=== PATIENT | female | born 1980 | race Caucasian/White ===

== ENCOUNTER 2017-03-14 15:54 | Inpatient (IN) | payer OTHER ==
[~2017-03-14] VITALS: Ht 160 cm; Wt 70.5 kg
[2017-03-14 15:56] VITALS: BP 137/63; PULSE 90; RESP 20; TEMP 98.6; O2SAT 98
--- NOTE | 2017-03-14 16:08 | PD ---
Physical Exam Time Seen by Provider: 16:04 Narrative 36yo F c/o R hip pain [id number]. Was treated for cellulitis of R hip w/ Doxycycline on 03/07/2017 by [facility]. Today is last day of Doxycycline and symptoms are much worse. Denies recent fever and vomiting. Reports nausea after taking medication. VS reviewed. Patient seen in triage. Awaiting bed placement. Data Data Last Documented VS Vital Signs Date Time Temp Pulse Resp B/P Pulse Ox O2 Delivery O2 Flow Rate FiO2 03/14/17 15:56 98.6 90 20 137/63 98 MDM Supervised Visit with ORALIA: Sapphire Benítez March 14, 2017 16:08
[2017-03-14] MEDS ORDERED: DOXY100C PO (16:27)
[2017-03-14] MEDS ORDERED: LIDOCAINE 1%/EPINEPHrine 1:100,000 SOLN 20 ML VIAL INFIL ONE (17:30)
[2017-03-14] MEDS ORDERED: VANCOMYCIN INJ 950 MG in SODIUM CHLOR 0.9% 250 ML INJ 250 ML IV ONE (17:45)
[2017-03-14] MEDS ORDERED: DIPHTH/TETANUS/ACEL PERTUSSIS (BOOSTER) 0.5 ML VIAL/PFS IM ONE (17:45)
[2017-03-14] MEDS ORDERED: SODIUM CHLORIDE 0.9% FLUSH 10 ML FLUSH IVF PRN (17:45)
[2017-03-14 17:57] LABS: AUTOMATED NEUTROPHIL # 7.1 TH/MM3 (1.8-7.7); BASOPHIL # 0.1 TH/MM3 (0-0.2); BASOPHIL % 0.7 % (0.0-2.0); EOSINOPHIL # 0.2 TH/MM3 (0-0.4); EOSINOPHIL % 1.5 % (0.0-4.0); HEMO FLAGS DIFF FINAL; LYMPH % 25.2 % (9.0-44.0); LYMPHOCYTE # 2.6 TH/MM3 (1.0-4.8); MEAN CELL VOLUME 91.1 FL (80.0-100.0); MEAN CORPUSCULAR HEMOGLOBIN 31.5 PG (27.0-34.0); MEAN CORPUSCULAR HGB CONC 34.6 % (32.0-36.0); NEUT % 68.6 % (16.0-70.0); PLATELET COUNT 366 TH/MM3 (150-450); RED BLOOD COUNT 4.61 MIL/MM3 (4.00-5.30); WHITE BLOOD COUNT 10.4 TH/MM3 (4.0-11.0)
[2017-03-14] MEDS ORDERED: MORPHINE SULFATE 8 MG/ML INJ ONE ×2 (18:04→18:05)
[2017-03-14 18:23] LABS: BICARBONATE 25.2 MEQ/L (21.0-32.0); POTASSIUM 3.7 MEQ/L (3.5-5.1)
[2017-03-14] MEDS ORDERED: SODIUM CHLOR 0.9% 1000 ML INJ 1,000 ML IV ONE (18:30)
[2017-03-14] MEDS ORDERED: MORPHINE SULFATE 8 MG/ML INJ IV PUSH ONE (18:30)
--- NOTE | 2017-03-14 18:40 | PD ---
HPI Chief Complaint: Pain: Acute or Chronic Time Seen by Provider: 16:17 Travel History International Travel<30 days: Yes Contact w/Intl Traveler<30days: Yes Name of Country Traveled to: [place] Traveled to known affect area: Yes History of Present Illness HPI Patient is a 36-year-old female who presents to emergency room with complaints of right-sided gluteal abscess. patient reports that she has had this abscess for the past 3 weeks, reports that 3 weeks ago, she was having fever/chills. Reports that she was started on doxycline 2 weeks ago and is completing her antibiotics today. Patient reports that symptoms are worse. Reports severe pain to her right hip, reports that she is unable to ambulate because of this pain. Reports that she is having fever/chills, reports that her right hip feels "tight." Tetanus is not up to date. PFSH Past Medical History Tetanus Vaccination: Unknown ?: Not LMP: 02/13/17 Social History Alcohol Use: No Tobacco Use: No Substance Use: No Allergies-Medications (Allergen,Severity, Reaction): Coded Allergies: No Known Allergies (Unverified , 03/14/17) Reported Meds & Prescriptions Reported Meds & Active Scripts Active Reported Doxycycline Hyclate 100 Mg Cap 100 Mg PO BID Review of Systems General / Constitutional: Positive: Fever, Chills Eyes: No: Visual changes HENT: No: Headaches Cardiovascular: No: Chest Pain or Discomfort Respiratory: No: Shortness of Breath Gastrointestinal: No: Abdominal Pain Genitourinary: No: Dysuria Musculoskeletal: No: Pain Skin: Positive Rash Neurologic: No: Weakness Psychiatric: No: Depression Endocrine: No: Polydipsia Hematologic/Lymphatic: No: Easy Bruising Physical Exam Narrative GENERAL: moderate distress SKIN: Focused skin assessment warm/dry. Patient with 8x8cm abscess to right upper buttocks with surrounding cellulitis and area of fluctuance HEAD: Atraumatic. Normocephalic. EYES: Pupils equal and round. No scleral icterus. No injection or drainage. ENT: No nasal bleeding or discharge. Mucous membranes pink and moist. NECK: Trachea midline. No JVD. CARDIOVASCULAR: Regular rate and rhythm. No murmur appreciated. RESPIRATORY: No accessory muscle use. Clear to auscultation. Breath sounds equal bilaterally. GASTROINTESTINAL: Abdomen soft, non-tender, nondistended. Hepatic and splenic margins not palpable. MUSCULOSKELETAL: No obvious deformities. No clubbing. No cyanosis. No edema. NEUROLOGICAL: Awake and alert. No obvious cranial nerve deficits. Motor grossly within normal limits. Normal speech. PSYCHIATRIC: Appropriate mood and affect; insight and judgment normal. Data Data Last Documented VS Vital Signs Date Time Temp Pulse Resp B/P Pulse Ox O2 Delivery O2 Flow Rate FiO2 03/14/17 15:56 98.6 90 20 137/63 98 Orders Lidocai-Epi 1%-1:100,000 Inj (Xylocaine- (03/14/17 17:30) Qwqn-Dsi-Gsffyt (Booster) Inj (Boostrix (03/14/17 17:45) Basic Metabolic Panel (Bmp) (03/14/17 17:31) Complete Blood Count With Diff (03/14/17 17:31) Iv Access Insert/Monitor (03/14/17 17:31) Sodium Chloride 0.9% Flush (Ns Flush) (03/14/17 17:45) Vancomycin Inj (Vancomycin Inj) (03/14/17 17:45) Morphine Inj (Morphine Inj) (03/14/17 18:04) Morphine Inj (Morphine Inj) (03/14/17 18:05) Wound Culture And Gram Stain (03/14/17 18:20) Morphine Inj (Morphine Inj) (03/14/17 18:30) Sodium Chlor 0.9% 1000 Ml Inj (Ns 1000 M (03/14/17 18:30) Diphenhydramine Inj (Benadryl Inj) (03/14/17 19:00) Labs Laboratory Tests Test 03/14/17 17:00 White Blood Count 10.4 TH/MM3 Red Blood Count 4.61 MIL/MM3 Hemoglobin 14.6 GM/DL Hematocrit 42.0 % Mean Corpuscular Volume 91.1 FL Mean Corpuscular Hemoglobin 31.5 PG Mean Corpuscular Hemoglobin 34.6 % Concent Red Cell Distribution Width 12.0 % Platelet Count 366 TH/MM3 Mean Platelet Volume 7.6 FL Neutrophils (%) (Auto) 68.6 % Lymphocytes (%) (Auto) 25.2 % Monocytes (%) (Auto) 4.0 % Eosinophils (%) (Auto) 1.5 % Basophils (%) (Auto) 0.7 % Neutrophils # (Auto) 7.1 TH/MM3 Lymphocytes # (Auto) 2.6 TH/MM3 Monocytes # (Auto) 0.4 TH/MM3 Eosinophils # (Auto) 0.2 TH/MM3 Basophils # (Auto) 0.1 TH/MM3 CBC Comment DIFF FINAL Differential Comment Sodium Level 140 MEQ/L Potassium Level 3.7 MEQ/L Chloride Level 105 MEQ/L Carbon Dioxide Level 25.2 MEQ/L Anion Gap 10 MEQ/L Blood Urea Nitrogen 18 MG/DL Creatinine 0.60 MG/DL Estimat Glomerular Filtration 114 ML/MIN Rate Random Glucose 90 MG/DL Calcium Level 9.7 MG/DL MDM Medical Decision Making Medical Screen Exam Complete: Yes Emergency Medical Condition: Yes Interpretation(s) Vital Signs Date Time Temp Pulse Resp B/P Pulse Ox O2 Delivery O2 Flow Rate FiO2 03/14/17 15:56 98.6 90 20 137/63 98 Laboratory Tests Test 03/14/17 17:00 White Blood Count 10.4 TH/MM3 (4.0-11.0) Red Blood Count 4.61 MIL/MM3 (4.00-5.30) Hemoglobin 14.6 GM/DL (11.6-15.3) Hematocrit 42.0 % (35.0-46.0) Mean Corpuscular Volume 91.1 FL (80.0-100.0) Mean Corpuscular Hemoglobin 31.5 PG (27.0-34.0) Mean Corpuscular Hemoglobin 34.6 % Concent (32.0-36.0) Red Cell Distribution Width 12.0 % (11.6-17.2) Platelet Count 366 TH/MM3 (150-450) Mean Platelet Volume 7.6 FL (7.0-11.0) Neutrophils (%) (Auto) 68.6 % (16.0-70.0) Lymphocytes (%) (Auto) 25.2 % (9.0-44.0) Monocytes (%) (Auto) 4.0 % (0.0-8.0) Eosinophils (%) (Auto) 1.5 % (0.0-4.0) Basophils (%) (Auto) 0.7 % (0.0-2.0) Neutrophils # (Auto) 7.1 TH/MM3 (1.8-7.7) Lymphocytes # (Auto) 2.6 TH/MM3 (1.0-4.8) Monocytes # (Auto) 0.4 TH/MM3 (0-0.9) Eosinophils # (Auto) 0.2 TH/MM3 (0-0.4) Basophils # (Auto) 0.1 TH/MM3 (0-0.2) CBC Comment DIFF FINAL Differential Comment Differential Diagnosis Abscess with cellulitis Narrative Course Patient is a 36-year-old female who presents to emergency room with complaints of abscess with cellulitis to her right upper buttocks. Patient reports that her symptoms began 3 weeks ago, she is currently complaining of a course of antibiotics (doxycline). Patient reports that she has severe pain to her right hip, reports pain is so severe, she is unable to ambulate. On evaluation, patient does have a significant abscess to her right upper buttocks. Patient's tetanus is updated. Patient was given a dose of IV vancomycin. Area was I&D, there was a significant amount of purulent, chunky, thick white cottage cheese drainage from this abscess. Area was explored for loculations, after areas explored, there was again a significant amount of purulent, thick, cottage cheese drainage from abscess. After abscess was drained, it was packed with iodoform packing. Plan to admit patient to hospital overnight. Wound cultures were obtained CBC & BMP Diagram 03/14/17 17:[address] tellez who accepts pt to service Procedures Procedure Narrative SKIN: There is an indurated area in the right upper buttocks which measures about 8x8 cm in diameter. I numbed the areas with lidocaine with epi. Abscess was fluctuant but there is no pointing or drainage. There is a zone of inflammation around it but no lymphangitis. Using a #11, a significant about of purulent thick white cottage cheese pus was removed from abscess. I did put a iodoform packing and area was dressed. Patient tolerated procedure well Diagnosis Primary Impression: Abscess, gluteal, right Admitting Information Admitting Physician Requests: Breanna aCstillo DO March 14, 2017 18:40
[2017-03-14] MEDS ORDERED: diphenhydrAMINE HCL 50 MG/ML VIAL IV PUSH ONE (19:00)
[2017-03-14] MEDS ORDERED: ACETAMINOPHEN 325 MG TAB PO PRN (19:30)
[2017-03-14] MEDS ORDERED: Vancomycin Consult Pharmacy 1 EA OTHER SCH (19:30)
[2017-03-14] MEDS ORDERED: ONDANSETRON HCL 4 MG/2 ML VIAL IVP PRN (19:30)
[2017-03-14] MEDS ORDERED: NALOXONE HCL 0.4 MG/ML AMP IV PRN (19:30)
[2017-03-14] MEDS ORDERED: SODIUM CHLORIDE 0.9% FLUSH 10 ML FLUSH IV FLUSH PRN (19:30)
--- NOTE | 2017-03-14 20:23 | HHI.HP ---
HPI Service [facility] Primary Care Physician No Primary Care Physician Admission Diagnosis abscess with cellulitis - failed outpatient treatment Diagnoses: Chief Complaint: gluteal abscess Travel History International Travel<30 Days: Yes Contact w/Intl Traveler <30 Da: Yes Name of Country Traveled to: [facility] [place] Traveled to Known Affected Are: Yes History of Present Illness This is a 36-year-old female who reports no prior medical history presents to emergency room with complaints of right-sided gluteal abscess. Patient is here on vacation from the [place], has also traveled to the [facility] recently for 1 month. [place] been in the [place] 1 [place]. Patient first noticed a red and tender area after traveling. Patient reports at first there was a round pink area. Denies trauma to the area. Is not sure if there was a mosquito bite or not reports there was, "a lot of mosquito bites," while she was in the [facility]. Patient reports that she has had this abscess for the past 3 weeks, reports that 3 weeks ago, she was having fever/chills and started in bed. Patient was seen by urgent care center 2 weeks ago and was started on doxycycline, no I&D at that time. Patient is completing her antibiotics today reports that symptoms are worse. Reports severe pain to her right hip, reports that she is unable to ambulate because of this pain. Reports that she is having fever/chills, reports that her right hip feels "tight." 2 weeks ago patient did have a productive cough which has resolved after Doxycycline. Patient denies foreign material in body, history of heart murmur/rheumatic fever or DM. Patient denies shortness of breath, chest pain, blood in stool, nausea/vomiting/ diarrhea, dysuria, changes in appetite, or changes in weight. Review of Systems Except as stated in HPI: all other systems reviewed are Neg Past Family Social History Past Medical History denies prior medical history Past Surgical History none Reported Medications Doxycycline 100mg PO BID Allergies: Coded Allergies: No Known Allergies (Unverified , 03/14/17) Active Ordered Medications Current Medications Medications (Trade) Dose Ordered Sig/Liset Route Start Time Stop Time Status Last Admin (NS Flush) 2 ml UNSCH PRN IV FLUSH 03/14/17 19:30 (NS Flush) 2 ml BID IV FLUSH 03/14/17 21:00 (Tylenol) 650 mg Q4H PRN PO 03/14/17 19:30 (Zofran Inj) 4 mg Q6H PRN IVP 03/14/17 19:30 Naloxone HCl 0.4 mg 0.4 mg UNSCH PRN IV 03/14/17 19:30 (Vancomycin Consult Pharmacy) 0 ml @ 0 mls/hr UNSCH OTHER 03/14/17 19:30 Family History Mother has lupus also report Leukemia runs in her family Social History Denies illicit drug use No ETOH use for the past month- prior to that is an occasional drinker 2-3 drink when she goes out about twice a month Tobacco quit smoking 1 month ago prior to that is a social smoking Physical Exam Vital Signs Vital Signs Date Time Temp Pulse Resp B/P Pulse Ox O2 Delivery O2 Flow Rate FiO2 03/14/17 20:09 16 03/14/17 15:56 98.6 90 20 137/63 98 Physical Exam GENERAL: This is a well-nourished, well-developed patient, in no apparent distress. SKIN: packing to Right gluteal area intact HEAD: Atraumatic. Normocephalic. No temporal or scalp tenderness. EYES: Extraocular motions intact. No scleral icterus. No injection or drainage. CARDIOVASCULAR: Regular rate and rhythm without murmurs, gallops, or rubs. RESPIRATORY: Clear to auscultation. Breath sounds equal bilaterally. No wheezes , rales, or rhonchi. GASTROINTESTINAL: Abdomen soft, non-tender, nondistended. No guarding. MUSCULOSKELETAL: Extremities without clubbing, cyanosis, or edema. No joint tenderness, effusion, or edema noted. No calf tenderness. Negative Homans sign bilaterally. NEUROLOGICAL: Awake and alert. No focal deficits. Motor and sensory grossly within normal limits. Five out of 5 muscle strength in all muscle groups. Normal speech. Laboratory Laboratory Tests Test 03/14/17 17:00 White Blood Count 10.4 Red Blood Count 4.61 Hemoglobin 14.6 Hematocrit 42.0 Mean Corpuscular Volume 91.1 Mean Corpuscular Hemoglobin 31.5 Mean Corpuscular Hemoglobin 34.6 Concent Red Cell Distribution Width 12.0 Platelet Count 366 Mean Platelet Volume 7.6 Neutrophils (%) (Auto) 68.6 Lymphocytes (%) (Auto) 25.2 Monocytes (%) (Auto) 4.0 Eosinophils (%) (Auto) 1.5 Basophils (%) (Auto) 0.7 Neutrophils # (Auto) 7.1 Lymphocytes # (Auto) 2.6 Monocytes # (Auto) 0.4 Eosinophils # (Auto) 0.2 Basophils # (Auto) 0.1 CBC Comment DIFF FINAL Differential Comment Sodium Level 140 Potassium Level 3.7 Chloride Level 105 Carbon Dioxide Level 25.2 Anion Gap 10 Blood Urea Nitrogen 18 Creatinine 0.60 Estimat Glomerular Filtration 114 Rate Random Glucose 90 Calcium Level 9.7 Date/Time Procedure Status Source Growth 03/14/17 20:00 Gram Stain Received Wound Buttock Pending 03/14/17 20:00 Wound Culture Received Wound Buttock Pending Result Diagram: 03/14/17 1700 03/14/17 1700 Assessment and Plan Problem List: (1) Abscess, gluteal, right ICD Code: L02.31 Status: Acute Assessment and Plan This is a 36-year-old female who reports no prior medical history presents to emergency room with complaints of right-sided gluteal abscess. Patient is here on vacation from the [place], has also traveled [place] 1 [place]. [place]. Patient first noticed a red and tender area after traveling. Patient reports at first there was a round pink area. Denies trauma to the area. Is not sure if there was a mosquito bite or not reports there was, "a lot of mosquito bites. Patient reports that she has had this abscess for the past 3 weeks, reports that 3 weeks ago, she was having fever/chills and started in bed. Patient was seen by urgent care center 2 weeks ago and was started on doxycycline, no I&D at that time. Patient is completing her antibiotics today reports that symptoms are worse. Right gluteal abscess with cellulitis- failed outpatient therapy S/P I&D in ER with iodoform packing Vancomycin started by ED- will continue with pharmacy to dose add Zosyn IV Wound culture obtained await results consult wound care [place] by mouth and Morphine IV as needed for pain CT with IV contrast ordered and pending DVT prophylaxis with SCDs Discussed with ER provider, nursing and patient Written by Ashley Miller, acting as scribe for Dr. Abel on 03/14/17 at 20: 47. Addendum: CT pelvis reviewed and reveals: Soft tissue abscesses associated with presumed infected right buttock implant. Appears that patient does in fact have foreign body, buttock implant, even though patient originally denied any foreign bodies/implants. Consult general surgery for evaluation This note was transcribed by scribe [Ashley Miller]. I, Dr. Kayleen Abel personally performed the history, physical exam, and medical decision making; and confirmed the accuracy of the information in the transcribed note. Authenticated by Dr. Kayleen Abel on 03/14/17 at 20:47. Physician Certification 2 Midnight Certification Type: Admission for Inpatient Services Order for Inpatient Services The services are ordered in accordance with Medicare regulations or non- Medicare payer requirements, as applicable. In the case of services not specified as inpatient-only, they are appropriately provided as inpatient services in accordance with the 2-midnight benchmark. Estimated LOS (days): 3 days is the estimated time the patient will need to remain in the hospital, assuming treatment plan goals are met and no additional complications. Post-Hospital Plan: Home Ashley Miller March 14, 2017 20:23 Kayleen Abel MD March 15, 2017 07:37
[2017-03-14 21:00] VITALS: BP 105/56; PULSE 65; RESP 16; O2SAT 98
[2017-03-14] MEDS ORDERED: IOHEXOL 350 MG/ML 10 ML VIAL (for RAD DIAG) IV ONE (21:19)
[2017-03-14 21:45] VITALS: BP 100/57; PULSE 82; RESP 18; TEMP 98.3; O2SAT 93
--- NOTE | 2017-03-14 21:54 | RADRPT ---
EXAM DATE/TIME: 03/14/2017 21:04 [facility] COMPARISON: No previous studies available for comparison. INDICATIONS : Evaluate pelvic abscess. IV CONTRAST: 90 cc Omnipaque 350 (iohexol) IV ORAL CONTRAST: No oral contrast ingested. RADIATION DOSE: 12.19 CTDIvol (mGy) MEDICAL HISTORY : None SURGICAL HISTORY : Self dissolving implants ENCOUNTER: Initial ACUITY: 3 weeks PAIN SCALE: 7/10 LOCATION: Bilateral pelvis TECHNIQUE: Volumetric scanning of the pelvis was performed. Using automated exposure control and adjustment of t he mA and/or kV according to patient size, radiation dose was kept as low as reasonably achievable to obtain optimal diagnostic quality images. FINDINGS: There are symmetric low density masses or collections in the deep subcutaneous tissues of the buttock s bilaterally which may be implants of some type. Lateral to and superficial to and somewhat above th e level of the right sided implant, a small irregular fluid density collection containing bubbles of air is present just deep to the skin surface. The collection measures about 4.5 cm in maximum oblong dimension. The overlying skin is thickened and there is induration in the surrounding subcutaneous ti ssues. Stranding and induration extends in contiguous fashion down to the edge of the ipsilateral imp lant where a second tiny adjacent fluid and air collection is present. Elsewhere on the exam, the pelvic bowel structures are unremarkable. There are some small cysts in th e ovaries. No free pelvic fluid. Urinary bladder is unremarkable. Inguinal regions are clear. The bon y elements are intact. CONCLUSION: Soft tissue abscesses associated with presumed infected right buttock implant. Michael Alston MD on March 14, 2017 at 21:44 Board Certified Radiologist. This report was verified electronically.
[2017-03-14] MEDS: SODIUM CHLORIDE 0.9% FLUSH 10 ML FLUSH IV FLUSH SCH (22:42)
[2017-03-15] VITALS (7 sets, daily range): BP systolic 84–110; BP diastolic 45–57; PULSE 68–80; RESP 16–18; TEMP 97.4–98.4; O2SAT 94–100
[2017-03-15] MEDS: PIPERACIL-TAZO 4.5 GM PREMIX 100 ML IV SCH ×5 (00:10→21:52)
[2017-03-15] MEDS: ACETAMINOPHEN/HYDROcodone 325 MG/5 MG TAB PO PRN (05:27)
[2017-03-15] MEDS: SODIUM CHLOR 0.9% 1000 ML INJ 1,000 ML IV SCH ×2 (05:27→15:15)
[2017-03-15 05:53] LABS: AUTOMATED NEUTROPHIL # 5.5 TH/MM3 (1.8-7.7); BASOPHIL % 0.3 % (0.0-2.0); EOSINOPHIL # 0.2 TH/MM3 (0-0.4); EOSINOPHIL % 2.9 % (0.0-4.0); HEMATOCRIT 38.2 % (35.0-46.0); HEMO FLAGS DIFF FINAL; LYMPH % 24.2 % (9.0-44.0); MEAN CELL VOLUME 91.2 FL (80.0-100.0); MEAN CORPUSCULAR HEMOGLOBIN 31.9 PG (27.0-34.0); NEUT % 67.6 % (16.0-70.0); PLATELET COUNT 329 TH/MM3 (150-450); RED BLOOD COUNT 4.18 MIL/MM3 (4.00-5.30); RED CELL DISTRIBUTION WIDTH 11.7 % (11.6-17.2); WHITE BLOOD COUNT 8.2 TH/MM3 (4.0-11.0)
[2017-03-15 06:13] LABS: BICARBONATE 28.5 MEQ/L (21.0-32.0)
[2017-03-15] MEDS: VANCOMYCIN 1,000 MG/NS 250 ML IV SCH ×4 (06:19→19:43)
[2017-03-15] MEDS: SODIUM CHLORIDE 0.9% FLUSH 10 ML FLUSH IV FLUSH SCH ×2 (08:56→19:58)
[2017-03-15] MEDS: LACTOBACILLUS ACIDOPHILUS TAB PO SCH ×3 (08:56→19:43)
--- NOTE | 2017-03-15 10:00 | HHI.PR ---
Subjective Remarks resting comfortably. no fever. pain is mild. no other complaints. Objective Vitals Vital Signs Date Time Temp Pulse Resp B/P Pulse Ox O2 Delivery O2 Flow Rate FiO2 03/15/17 08:00 97.7 68 17 92/56 98 03/15/17 04:00 98.4 74 18 110/57 98 03/15/17 00:00 98.0 80 18 95/45 94 03/14/17 21:45 98.3 82 18 100/57 93 03/14/17 21:00 65 16 105/56 98 03/14/17 20:09 16 03/14/17 15:56 98.6 90 20 137/63 98 I/O 03/14/17 03/14/17 03/14/17 03/15/17 03/15/17 03/15/17 07:00 15:00 23:00 07:00 15:00 23:00 Intake Total 480 ml 680 ml Balance 480 ml 680 ml Intake Oral 480 ml 480 ml IV Total 200 ml # Voids 0 2 # Bowel Movements 0 0 Result Diagram: 03/15/17 0533 03/15/17 0533 Imaging Last Impressions Pelvis CT 03/14/17 0000 Signed Impressions: Service Date/Time: Tuesday, March 14, 2017 21:04 - CONCLUSION: Soft tissue abscesses associated with presumed infected right buttock implant. Michael Alston MD Objective Remarks GENERAL: This is a well-nourished, well-developed patient, in no apparent distress. CARDIOVASCULAR: Regular rate and regular rhythm without murmurs, gallops, or rubs. RESPIRATORY: Clear to auscultation. Breath sounds equal bilaterally. No wheezes , rales, or rhonchi. GASTROINTESTINAL: Abdomen soft, non-tender, nondistended. Normal, active bowel sounds MUSCULOSKELETAL: Extremities without clubbing, cyanosis, or edema. NEURO: Alert & Oriented x4 to person, place, time, situation. Moves all ext x4 skin; s/p I/D of the right buttock abscess Procedures I/D of the right buttock abscess in ER Medications and IVs Current Medications Lidocaine/ Epinephrine (Xylocaine-Epi 1%-1:100,000 Inj) 30 ml ONCE ONCE INFIL Last administered on 03/14/17t 17:30; Start 03/14/17 at 17:30; Stop 03/14/17 at 17: 31; Status DC Diphtheria/ Tetanus/Acell Pertussis (Boostrix Inj) 0.5 ml ONCE ONCE IM Last administered on 03/14/17 17:45; Start 03/14/17 at 17:45; Stop 03/14/17 at 17:46; Status DC Sodium Chloride 2 ml 2 ml UNSCH PRN IVF FLUSH AFTER USING IV ACCESS; Start 03/14 at 17:45; Stop 03/14/17 at 19:55; Status DC Vancomycin HCl/ Sodium Chloride (Vancomycin Inj/ NS 250 ml Inj) 259.5 ml @ 250 mls/hr ONCE ONCE IV Last administered on 03/14/17 17:45; Start 03/14/17 at 17: 45; Stop 03/14/17 at 18:47; Status DC Morphine Sulfate (Morphine Inj) 8 mg STK-MED ONCE .ROUTE ; Start 03/14/17 at 18: 04; Stop 03/14/17 at 18:05; Status DC Morphine Sulfate (Morphine Inj) 8 mg STK-MED ONCE .ROUTE Last administered on 18:05; Start 03/14/17 at 18:05; Stop 03/14/17 at 18:06; Status DC Morphine Sulfate 8 mg 8 mg ONCE ONCE IV PUSH ; Start 03/14/17 at 18:30; Stop 03/14/17 at 18:31; Status DC Sodium Chloride (NS 1000 ml Inj) 1,000 ml @ 999 mls/hr BOLUS ONCE IV Last administered on 03/14/17 18:30; Start 03/14/17 at 18:30; Stop 03/14/17 at 19:30; Status DC Diphenhydramine HCl (Benadryl Inj) 50 mg ONCE ONCE IV PUSH Last administered on 03/14/17 19:00; Start 03/14/17 at 19:00; Stop 03/14/17 at 19:01; Status DC Sodium Chloride (NS Flush) 2 ml UNSCH PRN IV FLUSH FLUSH AFTER USING IV ACCESS ; Start 03/14/17 at 19:30 Sodium Chloride (NS Flush) 2 ml BID IV FLUSH Last administered on 03/14/17 22: 42; Start 03/14/17 at 21:00 Acetaminophen (Tylenol) 650 mg Q4H PRN PO TEMP > 100.4, pain 1-3; Start at 19:30 Ondansetron HCl (Zofran Inj) 4 mg Q6H PRN IVP NAUSEA OR VOMITING; Start at 19:30 Naloxone HCl 0.4 mg 0.4 mg UNSCH PRN IV SEE LABEL COMMENTS; Start 03/14/17 at 19 :30 Pharmacy Profile Note 0 ml @ 0 mls/hr UNSCH OTHER ; Start 03/14/17 at 19:30 Vancomycin HCl/ Sodium Chloride (Vancomycin Inj/ NS 250 ml Inj) 250 ml @ 250 mls/hr Q12H IV Last administered on 03/15/17 06:19; Start 03/15/17 at 06:00 Miscellaneous Information SPECIFIC LAB TO BE DRAWN:VANCO TROUGH DATE TO BE DR... ONCE ONCE .XX ; Start 03/16/17 at 05:45; Stop 03/16/17 at 05:46 Iohexol 90 ml 90 ml STK-MED ONCE IV Last administered on 03/14/17 21:19; Start 03/14/17 at 21:19; Stop 03/14/17 at 21:20; Status DC Piperacillin Sod/ Tazobactam Sod (Zosyn 4.5 Gm Premix) 100 ml @ 200 mls/hr Q6H IV Last administered on 03/15/17 05:18; Start 03/14/17 at 23:00 Lactobacillus Acidophilus 1 tab 1 tab TID PO Last administered on 03/15/17 08: 56; Start 03/15/17 at 09:00 Sodium Chloride (NS 1000 ml Inj) 1,000 ml @ 100 mls/hr Q10H IV Last administered on 03/15/17 05:27; Start 03/15/17 at 05:15 Acetaminophen/ Hydrocodone Bitart ([place] 5-325 Mg) 1 tab Q4H PRN PO PAIN 4-10 Last administered on 03/15/17 05:27; Start 03/15/17 at 05:15 A/P Assessment and Plan A/P Right gluteal abscess with cellulitis- failed outpatient therapy CT of the pelvis with Soft tissue abscesses associated with presumed infected right buttock implant S/P I&D in ER with iodoform packing will continue with vancomycin and Zosyn and follow the culture continue with pain control consulted surgery and wound care Mikey De Luna MD March 15, 2017 10:00
[2017-03-15] MEDS ORDERED: CLIN1CAP6 PO (12:58)
--- NOTE | 2017-03-15 20:40 | MB ---
cc: GURPREET CONNOR MD DATE OF CONSULTATION 03/15/2017 REASON FOR CONSULTATION Right gluteal abscess. HISTORY OF THE PRESENT ILLNESS The patient is a 36-year-old female presents with complaints of right-sided gluteal abscess. She is here on vacation from the and traveled to [facility] recently about a month ago and [place] in the [place] for approximately a month. The patient noted red, tender area while she was traveling. Several weeks ago she states that the redness continued to increase. Initially the pain was 12/16 and progressed to 05/15. She states the pain was located on her right hip, right side. It is sharp. It is worse with palpation and better with lying still. [facility] and started on doxycycline with minimal improvement. However, her symptoms continued to progress and the patient came to the emergency department for further evaluation including CT scan showing right-sided gluteal abscess, questionable abscess around a gluteal buttock implant. Therefore surgery was consulted. GENERAL: On my exam the patient is resting comfortably. She states that this infection has continued to get worse and actually somewhat opened a little bit and it has been draining. She denies any previous surgeries or implants. Further she denies any significant recent fevers. She is having some chills. She further discussed that she is from out-of-town and would like to go back to [facility] if she is to have any surgery done and is refusing any type of surgical procedure at this time. PAST MEDICAL HISTORY No past medical history. PAST SURGICAL HISTORY The patient denies any surgeries. MEDICATIONS Doxycycline. ALLERGIES The patient has no known drug allergies. SOCIAL HISTORY The patient occasional EtOH. Quit smoking about a month ago, occasional smoker, prior to this social smoking. FAMILY HISTORY Mother with lupus. Leukemia runs in her family. REVIEW OF SYSTEMS GENERAL: The patient complains of chills. HEENT: Denies eye pain, ear pain. NECK: Denies swelling or pain. LUNGS: Denies cough or wheeze. HEART: Denies palpitations or chest pain. ABDOMEN: Denies nausea, vomiting, abdominal pain. EXTREMITIES: Complained of right gluteal pain. Denies myalgias. GENITOURINARY: Denies dysuria, hematuria. ENDOCRINE: Denies polyuria, polydipsia. INTEGUMENT: Abscess as above. NEUROLOGIC: Denies numbness, tingling. PHYSICAL EXAMINATION GENERAL: The patient is in acute distress. VITAL SIGNS: Temperature 97.4, pulse 85, respiration 20, blood pressure 125/81, saturation 96%. HEENT: PERRLA, atraumatic, normocephalic. Pupils equal, round, reactive. NECK: Supple. Trachea midline. LUNGS: Clear to auscultation, bilateral expansion. No wheeze. HEART: S1-S2 regular rhythm. ABDOMEN: Soft, NT/ND. No rebound. EXTREMITIES: Positive tenderness to palpation in the right lower extremity. Decreased movement due to pain. right gluteal abscess with drainage and cellulitis NEUROLOGIC: GCS of 15, 5/5 motor all other extremities other than right lower. PSYCHIATRY: Anxiety, appropriate mood. LABORATORY AND DIAGNOSTIC DATA WBC 8.2, hemoglobin 13.3, hematocrit 38.2, platelets 329. Sodium 141, potassium 4.0, CO2 104, BUN 18, creatinine 0.66, glucose 117, calcium 9. IMAGING CT reviewed by myself soft tissue abscess questionable bilateral gluteal implants. Abscess measures about 4.5 cm. ASSESSMENT The patient is a 36-year-old female right gluteal abscess, questionable hardware versus implants. PLAN After full clinical, radiologic and laboratory workup, the patient with above-named issues including abscess. At this time discussed with the patient regarding need for IV antibiotics, pain control, monitor labs and possibly needing surgical intervention including incision and drainage of abscess to completely treat the infection. At this time the patient stating that she does not want any type of surgical procedures here and in fact she prefers to go back to her home country. She stated if she were to have any surgical procedure, she would have this done in [place] where she is from and is wanting to work on discharge planning. I discussed with the patient the risks, benefits, alternatives, discussed the potential risk of bacteremia, sepsis, septic shock and possible . The patient stated full understanding of this but again is inquiring about having surgical intervention at home. Further if indeed the patient does have gluteal implant which she is currently denying, consider a plastic surgery consultation as well. Again however, the patient refusing any kind of surgical procedure. Therefore, surgery will sign off. However, we will be available if the patient does change her mind or if further intervention is needed. Thank you for the consultation. MD DUSTY Sheth /4:56 PM /8:25 PM MTDGlenn
[2017-03-16 04:20] VITALS: BP 93/43; PULSE 70; RESP 16; TEMP 98.1; O2SAT 97
[2017-03-16] MEDS: PIPERACIL-TAZO 4.5 GM PREMIX 100 ML IV SCH ×4 (04:22→23:30)
[2017-03-16] MEDS: SODIUM CHLOR 0.9% 1000 ML INJ 1,000 ML IV SCH ×3 (04:30→20:19)
[2017-03-16] MEDS: VANCOMYCIN 1,000 MG/NS 250 ML IV SCH ×2 (05:36)
[2017-03-16] MEDS ORDERED: PHARMACY ORDERED LAB ONE (05:45)
[2017-03-16 08:00] VITALS: BP 99/56; PULSE 70; RESP 16; TEMP 98.1; O2SAT 98
[2017-03-16] MEDS: LACTOBACILLUS ACIDOPHILUS TAB PO SCH ×3 (08:03→18:07)
[2017-03-16] MEDS: SODIUM CHLORIDE 0.9% FLUSH 10 ML FLUSH IV FLUSH SCH ×2 (08:05→20:18)
--- NOTE | 2017-03-16 08:52 | HHI.PR ---
Subjective Remarks resting comfortably. denies pain. no fever. d/w the RN. Objective Vitals Vital Signs Date Time Temp Pulse Resp B/P Pulse Ox O2 Delivery O2 Flow Rate FiO2 03/16/17 08:10 Room Air 03/16/17 04:20 98.1 70 16 93/43 97 03/15/17 23:37 97.8 78 16 84/45 97 03/15/17 21:22 Room Air 03/15/17 20:08 97.4 80 16 97/56 97 03/15/17 16:00 97.6 79 18 107/55 100 03/15/17 12:00 98.0 69 16 96/54 98 I/O 03/15/17 03/15/17 03/15/17 03/16/17 03/16/17 03/16/17 07:00 15:00 23:00 07:00 15:00 23:00 Intake Total 680 ml 720 ml 1205 ml 822 ml Output Total 2 ml Balance 680 ml 720 ml 1203 ml 822 ml Intake Oral 480 ml 720 ml 480 ml 0 ml IV Total 200 ml 725 ml 822 ml Output Urine Total 2 ml # Voids 2 2 2 # Bowel Movements 0 0 1 0 Result Diagram: 03/15/17 0533 03/16/17 0531 Imaging Last Impressions Pelvis CT 03/14/17 0000 Signed Impressions: Service Date/Time: Tuesday, March 14, 2017 21:04 - CONCLUSION: Soft tissue abscesses associated with presumed infected right buttock implant. Michael Alston MD Objective Remarks GENERAL: This is a well-nourished, well-developed patient, in no apparent distress. CARDIOVASCULAR: Regular rate and regular rhythm without murmurs, gallops, or rubs. RESPIRATORY: Clear to auscultation. Breath sounds equal bilaterally. No wheezes , rales, or rhonchi. GASTROINTESTINAL: Abdomen soft, non-tender, nondistended. Normal, active bowel sounds MUSCULOSKELETAL: Extremities without clubbing, cyanosis, or edema. NEURO: Alert & Oriented x4 to person, place, time, situation. Moves all ext x4 skin; s/p I/D of the right buttock abscess Procedures I/D of the right buttock abscess in ER Medications and IVs Current Medications Lidocaine/ Epinephrine (Xylocaine-Epi 1%-1:100,000 Inj) 30 ml ONCE ONCE INFIL Last administered on 03/14/17 17:30; Start 03/14/17 at 17:30; Stop 03/14/17 at 17: 31; Status DC Diphtheria/ Tetanus/Acell Pertussis (Boostrix Inj) 0.5 ml ONCE ONCE IM Last administered on 03/14/17 17:45; Start 03/14/17 at 17:45; Stop 03/14/17 at 17:46; Status DC Sodium Chloride 2 ml 2 ml UNSCH PRN IVF FLUSH AFTER USING IV ACCESS; Start 03/14 at 17:45; Stop 03/14/17 at 19:55; Status DC Vancomycin HCl/ Sodium Chloride (Vancomycin Inj/ NS 250 ml Inj) 259.5 ml @ 250 mls/hr ONCE ONCE IV Last administered on 03/14/17 17:45; Start 03/14/17 at 17: 45; Stop 03/14/17 at 18:47; Status DC Morphine Sulfate (Morphine Inj) 8 mg STK-MED ONCE .ROUTE ; Start 03/14/17 at 18: 04; Stop 03/14/17 at 18:05; Status DC Morphine Sulfate (Morphine Inj) 8 mg STK-MED ONCE .ROUTE Last administered on 18:05; Start 03/14/17 at 18:05; Stop 03/14/17 at 18:06; Status DC Morphine Sulfate 8 mg 8 mg ONCE ONCE IV PUSH ; Start 03/14/17 at 18:30; Stop 03/14/17 at 18:31; Status DC Sodium Chloride (NS 1000 ml Inj) 1,000 ml @ 999 mls/hr BOLUS ONCE IV Last administered on 03/14/17 18:30; Start 03/14/17 at 18:30; Stop 03/14/17 at 19:30; Status DC Diphenhydramine HCl (Benadryl Inj) 50 mg ONCE ONCE IV PUSH Last administered on 03/14/17 19:00; Start 03/14/17 at 19:00; Stop 03/14/17 at 19:01; Status DC Sodium Chloride (NS Flush) 2 ml UNSCH PRN IV FLUSH FLUSH AFTER USING IV ACCESS ; Start 03/14/17 at 19:30 Sodium Chloride (NS Flush) 2 ml BID IV FLUSH Last administered on 03/15/17 19: 58; Start 03/14/17 at 21:00 Acetaminophen (Tylenol) 650 mg Q4H PRN PO TEMP > 100.4, pain 1-3; Start at 19:30 Ondansetron HCl (Zofran Inj) 4 mg Q6H PRN IVP NAUSEA OR VOMITING; Start at 19:30 Naloxone HCl 0.4 mg 0.4 mg UNSCH PRN IV SEE LABEL COMMENTS; Start 03/14/17 at 19 :30 Pharmacy Profile Note 0 ml @ 0 mls/hr UNSCH OTHER ; Start 03/14/17 at 19:30 Vancomycin HCl/ Sodium Chloride (Vancomycin Inj/ NS 250 ml Inj) 250 ml @ 250 mls/hr Q12H IV Last administered on 03/16/17 05:36; Start 03/15/17 at 06:00 Miscellaneous Information SPECIFIC LAB TO BE DRAWN:VANCO TROUGH DATE TO BE DR... ONCE ONCE .XX Last administered on 03/16/17 05:35; Start 03/16/17 at 05 :45; Stop 03/16/17 at 05:46; Status DC Iohexol 90 ml 90 ml STK-MED ONCE IV Last administered on 03/14/17 21:19; Start 03/14/17 at 21:19; Stop 03/14/17 at 21:20; Status DC Piperacillin Sod/ Tazobactam Sod (Zosyn 4.5 Gm Premix) 100 ml @ 200 mls/hr Q6H IV Last administered on 03/16/17 04:22; Start 03/14/17 at 23:00 Lactobacillus Acidophilus 1 tab 1 tab TID PO Last administered on 03/16/17 08: 03; Start 03/15/17 at 09:00 Sodium Chloride (NS 1000 ml Inj) 1,000 ml @ 100 mls/hr Q10H IV Last administered on 03/16/17 04:30; Start 03/15/17 at 05:15 Acetaminophen/ Hydrocodone Bitart ([place] 5-325 Mg) 1 tab Q4H PRN PO PAIN 4-10 Last administered on 03/15/17 05:27; Start 03/15/17 at 05:15 A/P Assessment and Plan A/P Right gluteal abscess with cellulitis- failed outpatient therapy CT of the pelvis with Soft tissue abscesses associated with presumed infected right buttock implant S/P I&D in ER with iodoform packing will continue with vancomycin and Zosyn and follow the culture continue with pain control surgery consult appreciated; d/w ; patient initially refused any further surgical intervention however after my discussion with her , now she's considering the surgical care. will reconsult surgery if she changes her mind. Mikey De Luna MD March 16, 2017 08:52
--- NOTE | 2017-03-16 10:49 | HHI.PR ---
Subjective Subjective Notes pt deciding she does want surgery now. Still with pain and drainage from wound, no fevers Objective Vitals/I&O Vital Signs Date Time Temp Pulse Resp B/P Pulse Ox O2 Delivery O2 Flow Rate FiO2 03/16/17 08:10 Room Air 03/16/17 08:00 98.1 70 16 99/56 98 Labs Laboratory Tests Test 03/16/17 03/16/17 05:31 05:35 Creatinine 0.67 Estimat Glomerular Filtration 101 Rate Vancomycin Level Trough 5.5 Date/Time Procedure Status Source Growth 03/14/17 20:00 Gram Stain - Final Complete Wound Buttock 03/14/17 20:00 Wound Culture - Final Complete Pseudomonas Aeruginosa Cardiovascular: Regular Lungs: Clear Abdomen: Non-distended, Non-tender, Other Wound Wound : Wound Location: Left leg (lateral gluteal abscess +erythema, +drainage ) A/P Assessment and Plan right gluteal abscess PLAN discussed with the patient in detail regarding surgery. She does have the option to go home and get I and D but given the abscess seen on CT she is at risk for further complication and sepsis. She states she has changed her mind and would like to have the abscess drained here. She is agreeable to undergo I and D with possible vac placement here at [facility]. Will plan for OR today continue IV abx Moo Diane MD March 16, 2017 10:49
[2017-03-16] MEDS ORDERED: SODIUM BICARBONATE 8.4% INJ 50 ML ONE (10:57)
[2017-03-16] MEDS ORDERED: LIDOCAINE 1%/EPINEPHrine 1:100,000 SOLN 50 ML VIAL ONE (10:58)
[2017-03-16] MEDS ORDERED: GENTAMICIN SULFATE 80 MG/2 ML VIAL ONE (10:59)
[2017-03-16 12:00] VITALS: BP 93/54; PULSE 75; RESP 16; TEMP 98.7; O2SAT 98
[2017-03-16] MEDS ORDERED: ONDANSETRON HCL 4 MG/2 ML VIAL IV PUSH ONE (12:00)
[2017-03-16] MEDS ORDERED: PROPOFOL 200 MG/20 ML AMP IV ONE (12:00)
[2017-03-16] MEDS ORDERED: *morphine SULFATE 8 MG/ML PERIprocedure ONLY ONE ×2 (13:03→13:14)
[2017-03-16] MEDS ORDERED: fentaNYL CITRATE 250 MCG/5 ML AMP ONE (13:06)
[2017-03-16] MEDS ORDERED: DO NOT ADM ANY ANTICOAGULANT DRUGS PRN (13:15)
[2017-03-16] MEDS: ACETAMINOPHEN/HYDROcodone 325 MG/5 MG TAB PO PRN (14:31)
--- NOTE | 2017-03-16 15:46 | HHI.PR ---
Immediate Post Op Note Procedure Date: March 16, 2017 Pre Op Diagnosis: right lateral gluteal abscess Post Op Diagnosis: same, with infected foreign body material Surgeon: Moo Diane MD Shanker Out(s): see or sheet Procedure: Incisions and drainage of necrotic purulent right gluteal abscess cavity with vac placement Findings: purulent abscess cavity with infected foreign body Specimen(s) removed: purulent drainage sent foreign body sent- silicone appearance Anesthesia: General Drains: Hemovac Patient to: PACU Patient Condition: Good Moo Diane MD March 16, 2017 15:46
[2017-03-16 16:00] VITALS: BP 90/51; PULSE 65; RESP 18; TEMP 97.7; O2SAT 96
[2017-03-16] MEDS: VANCOMYCIN INJ 1,250 MG in SODIUM CHLOR 0.9% 250 ML INJ 250 ML IV SCH (17:04)
--- NOTE | 2017-03-16 17:52 | HHI.PR ---
Subjective Subjective Notes called to bedside. Pt insisting on vac removal. She states she would like to leave the hospital against medical advice Objective Vitals/I&O Vital Signs Date Time Temp Pulse Resp B/P Pulse Ox O2 Delivery O2 Flow Rate FiO2 03/16/17 16:00 97.7 65 18 90/51 96 03/16/17 13:15 Room Air Labs Laboratory Tests Test 03/16/17 03/16/17 05:31 05:35 Creatinine 0.67 Estimat Glomerular Filtration 101 Rate Vancomycin Level Trough 5.5 Date/Time Procedure Status Source Growth 03/16/17 12:38 Gram Stain Received Abscess Other Pending 03/16/17 12:38 Wound Culture Received Abscess Other Pending 03/16/17 12:38 Fungal Smear Received Abscess Other Pending 03/16/17 12:38 Fungal Culture Received Abscess Other Pending 03/16/17 12:38 Acid Fast Stain Received Abscess Other Pending 03/16/17 12:38 Mycobacterial Culture Received Abscess Other Pending 03/14/17 20:00 Gram Stain - Final Complete Wound Buttock 03/14/17 20:00 Wound Culture - Final Complete Pseudomonas Aeruginosa Cardiovascular: Regular Lungs: Clear Abdomen: Non-distended, Non-tender, Other Narrative Exam pt awake alert, answering questions appropriately, AAOx 3, alert to person place and time Wound Wound : Wound Location: Right leg (vac in place no leak) A/P Discharge Planning vac removal and will transition to wet to drys Moo Diane MD March 16, 2017 17:52 Pt still insistent on leaving [facility]. Moo Diane MD March 16, 2017 17:52
[2017-03-16] MEDS ORDERED: oxyCODONE/ACETAMINOPHEN 7.5 MG/325 MG TAB PO ONE (18:00)
[2017-03-16 20:10] VITALS: BP 88/47; PULSE 67; RESP 16; TEMP 98; O2SAT 97
[2017-03-16 23:30] VITALS: BP 90/43; PULSE 73; RESP 16; TEMP 98; O2SAT 98
[2017-03-17] MEDS: VANCOMYCIN INJ 1,250 MG in SODIUM CHLOR 0.9% 250 ML INJ 250 ML IV SCH (03:33)
[2017-03-17 04:00] VITALS: BP 90/55; PULSE 63; RESP 16; TEMP 98; O2SAT 96
[2017-03-17] MEDS: PIPERACIL-TAZO 4.5 GM PREMIX 100 ML IV SCH ×2 (05:01→10:25)
[2017-03-17 08:00] VITALS: BP 93/46; PULSE 70; RESP 16; TEMP 98.4; O2SAT 96
[2017-03-17] MEDS: LACTOBACILLUS ACIDOPHILUS TAB PO SCH ×2 (08:16→12:27)
[2017-03-17] MEDS: ACETAMINOPHEN/HYDROcodone 325 MG/5 MG TAB PO PRN (08:19)
[2017-03-17] MEDS: SODIUM CHLOR 0.9% 1000 ML INJ 1,000 ML IV SCH (08:20)
[2017-03-17 08:37] VITALS: O2SAT 99
[2017-03-17] MEDS: SODIUM CHLORIDE 0.9% FLUSH 10 ML FLUSH IV FLUSH SCH (09:00)
--- NOTE | 2017-03-17 10:46 | HHI.PR ---
Subjective Subjective Notes Resting in bed Has made arrangements to return to [facility] this evening---leaving [place] at about 10PM Would like Wound Vac removed Objective Vitals/I&O Vital Signs Date Time Temp Pulse Resp B/P Pulse Ox O2 Delivery O2 Flow Rate FiO2 03/17/17 10:00 Room Air 03/17/17 08:00 98.4 70 16 93/46 96 Labs Laboratory Tests Test 03/17/17 08:12 Creatinine 0.50 Estimat Glomerular Filtration 141 Rate Date/Time Procedure Status Source Growth 03/16/17 12:38 Gram Stain - Final Resulted Abscess Other 03/16/17 12:38 Wound Culture Resulted Abscess Other Pending 03/16/17 12:38 Fungal Smear - Final Resulted Abscess Other NO FUNGAL ELEMENTS SEEN. 03/16/17 12:38 Fungal Culture Resulted Abscess Other Pending 03/16/17 12:38 Acid Fast Stain Received Abscess Other Pending 03/16/17 12:38 Mycobacterial Culture Received Abscess Other Pending Cardiovascular: Regular Lungs: Clear Abdomen: Non-distended, Non-tender Extremities: Other (see below) Narrative Exam RIGHT gluteal Wound Vac in place s/p I&D with good seal A/P Assessment and Plan 36 year old female with RIGHT gluteal abscess s/p I&D -Pain control -Plan to remove Vac today and place wet to dry dressing -Obtain supplies (see order) -Regular diet Attending Statement patient seen at bedside patient insisting on going to [facility] and booked flight home will d/c vac discussed the importance of follow up with general surgeon in [facility] for further wound care Attestation The exam, history, and the medical decision-making described in the above note were completed with the assistance of the mid-level provider. I reviewed and agree with the findings presented. I attest that I had a [id number] encounter with the patient on the same day, and personally performed and documented my assessment and findings in the medical record. Lizzy Arvizu March 17, 2017 10:46 Moo Diane MD March 27, 2017 22:16
[2017-03-17 11:33] VITALS: BP 103/51; PULSE 75; RESP 20; TEMP 97.7; O2SAT 93
--- NOTE | 2017-03-17 11:35 | HHI.PR ---
Subjective Remarks resting comfortably with no distress. pain is fairly controlled. no fever. wants to be discharged today so that she could catch her flight back home tonight. d/w the RN. Objective Vitals Vital Signs Date Time Temp Pulse Resp B/P Pulse Ox O2 Delivery O2 Flow Rate FiO2 03/17/17 10:00 Room Air 03/17/17 08:37 99 21 03/17/17 08:00 98.4 70 16 93/46 96 03/17/17 04:00 98.0 63 16 90/55 96 03/16/17 23:30 98.0 73 16 90/43 98 03/16/17 20:10 98.0 67 16 88/47 97 03/16/17 20:01 Room Air 03/16/17 16:00 97.7 65 18 90/51 96 03/16/17 13:15 78 17 92/51 97 Room Air 03/16/17 13:00 99 18 111/65 94 Room Air 03/16/17 12:58 97.4 103 12 113/58 100 03/16/17 12:00 98.7 75 16 93/54 98 I/O 03/16/17 03/16/17 03/16/17 03/17/17 03/17/17 03/17/17 07:00 15:00 23:00 07:00 15:00 23:00 Intake Total 822 ml 800 ml 1262 ml 1040 ml Output Total 20 ml 500 ml 0 ml Balance 822 ml 780 ml 762 ml 1040 ml Intake Oral 0 ml 480 ml 240 ml IV Total 822 ml 782 ml 800 ml Other 800 ml Output Urine Total 500 ml Stool Total 0 ml Estimated Blood Loss 20 ml # Voids 2 3 1 # Bowel Movements 0 0 Result Diagram: 03/15/17 0533 03/17/17 0812 Imaging Last Impressions Pelvis CT 03/14/17 0000 Signed Impressions: Service Date/Time: Tuesday, March 14, 2017 21:04 - CONCLUSION: Soft tissue abscesses associated with presumed infected right buttock implant. Michael Alston MD Objective Remarks GENERAL: This is a well-nourished, well-developed patient, in no apparent distress. CARDIOVASCULAR: Regular rate and regular rhythm without murmurs, gallops, or rubs. RESPIRATORY: Clear to auscultation. Breath sounds equal bilaterally. No wheezes , rales, or rhonchi. GASTROINTESTINAL: Abdomen soft, non-tender, nondistended. Normal, active bowel sounds MUSCULOSKELETAL: Extremities without clubbing, cyanosis, or edema. NEURO: Alert & Oriented x4 to person, place, time, situation. Moves all ext x4 skin; s/p I/D of the right buttock abscess Procedures I/D of the right buttock abscess in ER I/D of the right gluteal abscess with wound vac placement Medications and IVs Current Medications Lidocaine/ Epinephrine (Xylocaine-Epi 1%-1:100,000 Inj) 30 ml ONCE ONCE INFIL Last administered on 03/14/17 17:30; Start 03/14/17 at 17:30; Stop 03/14/17 at 17: 31; Status DC Diphtheria/ Tetanus/Acell Pertussis (Boostrix Inj) 0.5 ml ONCE ONCE IM Last administered on 03/14/17 17:45; Start 03/14/17 at 17:45; Stop 03/14/17 at 17:46; Status DC Sodium Chloride 2 ml 2 ml UNSCH PRN IVF FLUSH AFTER USING IV ACCESS; Start 03/14 at 17:45; Stop 03/14/17 at 19:55; Status DC Vancomycin HCl/ Sodium Chloride (Vancomycin Inj/ NS 250 ml Inj) 259.5 ml @ 250 mls/hr ONCE ONCE IV Last administered on 03/14/17 17:45; Start 03/14/17 at 17: 45; Stop 03/14/17 at 18:47; Status DC Morphine Sulfate (Morphine Inj) 8 mg STK-MED ONCE .ROUTE ; Start 03/14/17 at 18: 04; Stop 03/14/17 at 18:05; Status DC Morphine Sulfate (Morphine Inj) 8 mg STK-MED ONCE .ROUTE Last administered on 18:05; Start 03/14/17 at 18:05; Stop 03/14/17 at 18:06; Status DC Morphine Sulfate 8 mg 8 mg ONCE ONCE IV PUSH ; Start 03/14/17 at 18:30; Stop 03/14/17 at 18:31; Status DC Sodium Chloride (NS 1000 ml Inj) 1,000 ml @ 999 mls/hr BOLUS ONCE IV Last administered on 03/14/17 18:30; Start 03/14/17 at 18:30; Stop 03/14/17 at 19:30; Status DC Diphenhydramine HCl (Benadryl Inj) 50 mg ONCE ONCE IV PUSH Last administered on 03/14/17 19:00; Start 03/14/17 at 19:00; Stop 03/14/17 at 19:01; Status DC Sodium Chloride (NS Flush) 2 ml UNSCH PRN IV FLUSH FLUSH AFTER USING IV ACCESS ; Start 03/14/17 at 19:30 Sodium Chloride (NS Flush) 2 ml BID IV FLUSH Last administered on 03/15/17 19: 58; Start 03/14/17 at 21:00 Acetaminophen (Tylenol) 650 mg Q4H PRN PO TEMP > 100.4, pain 1-3; Start at 19:30 Ondansetron HCl (Zofran Inj) 4 mg Q6H PRN IVP NAUSEA OR VOMITING; Start at 19:30 Naloxone HCl 0.4 mg 0.4 mg UNSCH PRN IV SEE LABEL COMMENTS; Start 03/14/17 at 19 :30 Pharmacy Profile Note 0 ml @ 0 mls/hr UNSCH OTHER ; Start 03/14/17 at 19:30 Vancomycin HCl/ Sodium Chloride (Vancomycin Inj/ NS 250 ml Inj) 250 ml @ 250 mls/hr Q12H IV Last administered on 03/16/17 05:36; Start 03/15/17 at 06:00; Stop 03/16/17 at 12:01; Status DC Miscellaneous Information SPECIFIC LAB TO BE DRAWN:VANCO TROUGH DATE TO BE DR... ONCE ONCE .XX Last administered on 03/16/17 05:35; Start 03/16/17 at 05 :45; Stop 03/16/17 at 05:46; Status DC Iohexol 90 ml 90 ml STK-MED ONCE IV Last administered on 03/14/17 21:19; Start 03/14/17 at 21:19; Stop 03/14/17 at 21:20; Status DC Piperacillin Sod/ Tazobactam Sod (Zosyn 4.5 Gm Premix) 100 ml @ 200 mls/hr Q6H IV Last administered on 03/17/17 10:25; Start 03/14/17 at 23:00 Lactobacillus Acidophilus 1 tab 1 tab TID PO Last administered on 03/17/17 08: 16; Start 03/15/17 at 09:00 Sodium Chloride (NS 1000 ml Inj) 1,000 ml @ 100 mls/hr Q10H IV Last administered on 03/17/17 08:20; Start 03/15/17 at 05:15 Acetaminophen/ Hydrocodone Bitart 1 tab 1 tab Q4H PRN PO PAIN 4-10 Last administered on 03/17/17 08:19; Start 03/15/17 at 05:15 Sodium Bicarbonate (Sodium Bicarbonate 8.4% Inj) 50 ml @ As Directed STK-MED ONCE .ROUTE ; Start 03/16/17 at 10:57; Stop 03/16/17 at 10:58; Status DC Lidocaine/ Epinephrine (Xylocaine-Epi 1%-1:100,000 Inj) 50 ml STK-MED ONCE .ROUTE ; Start 03/16/17 at 10:58; Stop 03/16/17 at 10:59; Status DC Gentamicin Sulfate 240 mg 240 mg STK-MED ONCE .ROUTE Last administered on 12:19; Start 03/16/17 at 10:59; Stop 03/16/17 at 11:00; Status DC Vancomycin HCl/ Sodium Chloride (Vancomycin Inj/ NS 250 ml Inj) 262.5 ml @ 262.5 mls/ hr Q12H IV Last administered on 03/17/17 03:33; Start 03/16/17 at 16:00 Miscellaneous Information SPECIFIC LAB TO BE NAOMY... ONCE ONCE .XX ; Start 03/18 at 03:45; Stop 03/18/17 at 03:46 Morphine Sulfate (*morphine INJ PERIprocedure ONLY) 8 mg STK-MED ONCE .ROUTE Last administered on 03/16/17 13:03; Start 03/16/17 at 13:03; Stop 03/16/17 at 13:04; Status DC Fentanyl Citrate (fentaNYL INJ) 250 mcg STK-MED ONCE .ROUTE ; Start 03/16/17 at 13:06; Stop 03/16/17 at 13:07; Status DC Miscellaneous Information ALL NURSING DEPARTME... UNSCH PRN .XX SEE LABEL COMMENTS; Start 03/16/17 at 13:15; Stop 03/17/17 at 13:14 Morphine Sulfate (*morphine INJ PERIprocedure ONLY) 8 mg STK-MED ONCE .ROUTE Last administered on 03/16/17 13:14; Start 03/16/17 at 13:14; Stop 03/16/17 at 13:15; Status DC Oxycodone/ Acetaminophen (Percocet 7.5-325 Mg) 2 tab NOW ONCE PO ; Start at 18:00; Stop 03/16/17 at 18:01; Status DC Oxycodone/ Acetaminophen (Percocet 7.5-325 Mg) 2 tab NOW ONCE PO Last administered on 03/17/17 11:29; Start 03/17/17 at 11:45; Stop 03/17/17 at 11:46 A/P Assessment and Plan A/P Right gluteal abscess with cellulitis- failed outpatient therapy CT of the pelvis with Soft tissue abscesses associated with presumed infected right buttock implant S/P I&D in ER with iodoform packing- s/p I/D of the right gluteal abscess and wound vac placement wound culture with pseudomonas continue with pain control and antibiotic; will switch to po. the patient wants to be discharged today so she could catch her flight back home tonight. d/w earlier and wound vac will be discontinued later today. Discharge Planning discharge today after surgery follow-up and wound vac removal. see med list. f/u with pcp. d/w the patient, RN and . Mikey De Luna MD March 17, 2017 11:35
[2017-03-17] MEDS ORDERED: LEVA750T PO (11:37)
[2017-03-17] MEDS ORDERED: NORC5TAB PO (11:37)
--- NOTE | 2017-03-17 11:37 | HHI.DCPOC ---
Discharge Care Plan Diagnosis: (1) Abscess, gluteal, right Your Health Problems Are: Inflammation Swelling Goals to Promote Your Health * To prevent worsening of your condition and complications * To maintain your health at the optimal level Directions to Meet Your Goals Take your medications as prescribed Follow your dietary instruction Follow activity as directed Keep your appointments as scheduled Take your immunizations and boosters as scheduled If your symptoms worsen call your PCP, if no PCP go to Urgent Care Center or Emergency Room Smoking is Dangerous to Your Health. Avoid second hand smoke Call the 24-hour hour crisis hotline for domestic abuse at Mikey De Luna MD March 17, 2017 11:37
--- NOTE | 2017-03-17 11:40 | HHI.DS ---
Discharge Summary Admission Date March 14, 2017 at 19:56 Discharge Date: March 17, 2017 Admitting Diagnosis abscess with cellulitis - failed outpatient treatment (1) Abscess, gluteal, right ICD Code: L02.31 Diagnosis: Principal Procedures I/D of the right buttock abscess in ER I/D of the right gluteal abscess with wound vac placement Brief History - From Admission This is a 36-year-old female who reports no prior medical history presents to emergency room with complaints of right-sided gluteal abscess. Patient is here on vacation from the [place], has also traveled to the [place] recently [place] 1 [place]. Patient has been in the [place] for 1 [place]. Patient first noticed a red and tender area after traveling. Patient reports at first there was a round pink area. Denies trauma to the area. Is not sure if there was a mosquito bite or not reports there was, "a lot of mosquito bites," while she was in the [facility]. Patient reports that she has had this abscess for the past 3 weeks, reports that 3 weeks ago, she was having fever/chills and started in bed. Patient was seen by urgent care center 2 weeks ago and was started on doxycycline, no I&D at that time. Patient is completing her antibiotics today reports that symptoms are worse. Reports severe pain to her right hip, reports that she is unable to ambulate because of this pain. Reports that she is having fever/chills, reports that her right hip feels "tight." 2 weeks ago patient did have a productive cough which has resolved after Doxycycline. Patient denies foreign material in body, history of heart murmur/rheumatic fever or DM. Patient denies shortness of breath, chest pain, blood in stool, nausea/vomiting/ diarrhea, dysuria, changes in appetite, or changes in weight. CBC/BMP: 03/15/17 0533 03/17/17 0812 Significant Findings Laboratory Tests Test 03/15/17 05:33 Random Glucose 117 MG/DL (74-106) Imaging Last Impressions Pelvis CT 03/14/17 0000 Signed Impressions: Service Date/Time: Tuesday, March 14, 2017 21:04 - CONCLUSION: Soft tissue abscesses associated with presumed infected right buttock implant. Michael Alston MD PE at Discharge GENERAL: This is a well-nourished, well-developed patient, in no apparent distress. CARDIOVASCULAR: Regular rate and regular rhythm without murmurs, gallops, or rubs. RESPIRATORY: Clear to auscultation. Breath sounds equal bilaterally. No wheezes , rales, or rhonchi. GASTROINTESTINAL: Abdomen soft, non-tender, nondistended. Normal, active bowel sounds MUSCULOSKELETAL: Extremities without clubbing, cyanosis, or edema. NEURO: Alert & Oriented x4 to person, place, time, situation. Moves all ext x4 skin; s/p I/D of the right buttock abscess Hospital Course Right gluteal abscess with cellulitis- failed outpatient therapy CT of the pelvis with Soft tissue abscesses associated with presumed infected right buttock implant S/P I&D in ER with iodoform packing- s/p I/D of the right gluteal abscess and wound vac placement wound culture with pseudomonas continue with pain control and antibiotic; will switch to po. the patient wants to be discharged today so she could catch her flight back home tonight. d/w earlier and wound vac will be discontinued later today. Pt Condition on Discharge: Good Discharge Disposition: Discharge Home Discharge Time: <= 30 minutes Discharge Instructions DIET: Follow Instructions for: As Tolerated, No Restrictions Activities you can perform: Regular-No Restrictions Follow up Referrals: PCP Follow-up New Medications: Hydrocodone-Acetaminophen ([place]) 5-325 mg Tab 1 TAB PO Q6H PRN PAIN #12 Ref 0 TAB Levofloxacin (Levaquin) 750 Mg Tab 750 MG PO DAILY Infection Days 14 Ref 0 TAB Discontinued Medications: Doxycycline Hyclate (Doxycycline Hyclate) 100 Mg Cap 100 MG PO BID Infection Ref 0 CAP Mikey De Luna MD March 17, 2017 11:40
[2017-03-17] MEDS ORDERED: oxyCODONE/ACETAMINOPHEN 7.5 MG/325 MG TAB PO ONE (11:45)
[2017-03-17 12:00] VITALS: BP 93/48; PULSE 69; RESP 17; TEMP 98.5; O2SAT 95
[2017-03-17] MEDS ORDERED: LORazepam 2 MG/ML VIAL IV ONE (12:00)
--- NOTE | 2017-03-17 22:49 | MP ---
cc: GURPREET DIANE MD DATE OF SURGERY: 03/16/17 PREOPERATIVE DIAGNOSIS Right lateral gluteal abscess. POSTOPERATIVE DIAGNOSIS Right lateral gluteal abscess with infected foreign body material SURGEON Dr. Panchito Diane [employer] See OR sheet ANESTHESIA GETA. IV FLUIDS See anesthesia sheet PROCEDURE PERFORMED Incision and drainage of necrotic purulent right gluteal abscess cavity with necrotic debris and with VAC placement. FINDINGS Purulent abscess cavity, infected foreign body material, necrotic abscess. SPECIMENS 1. Purulent drainage sent for culture. 2. Foreign body sent for evaluation. WOUND CLASSIFICATION Dirty, contaminated. DRAINS VAC placement. COMPLICATIONS None INDICATION The patient is a 36-year-old female who presents with complaints of drainage from a right lateral gluteal region. She states it has gone on for several weeks. She had antibiotics with continued redness, erythema and drainage without appropriate adequate treatment. She did have a small opening where drainage was noted to be coming from. She had a CT scan showing significantly a enlarged 4.5 cm cavity with connection into a foreign body material capsule. The patient did note she had injections 2 1/2 years ago with Hyaluronic acid. PROCEDURE IN DETAIL The patient was taken to operating suite, placed in left lateral decubitus position. She was prepped and draped in usual sterile fashion after induction of general endotracheal anesthesia. Brief time-out done stating correct patient, procedure, surgical site and all were in agreement with this. Attention first directed to the lateral gluteal region with a noted cellulitis and abscess cavity was noted. The cavity was already slightly opened. A 15 blade scalpel was used to extend the opening to both medial and lateral. Electro Bovie cautery used for further extension. Interdigitation with a finger with palpation of purulent necrotic debris and purulence noted to be extruding from the wound. Also foreign body material with appearance of silicone was noted. These granules were also being extruded from the cavity as well. Specimen was sent for cultures and specimen was sent for evaluation of foreign body debris. Suction pulse lavage irrigation was used in order to adequately irrigate the cavity. On further interdigitation, there was noted to be communization medially to the presumed other pocket cavity that was seen on CT scan, again containing more of the presumed silicone and hyaluronic acid, likely implant. We then suction lavaged and completely irrigated out. All purulent drainage and necrotic pus was removed as well. Suction lavage with at least 2 liters of antibiotic irrigation was done. This was done until the cavity was cleaned. Electro Bovie cautery used for hemostasis. VAC sponge was obtained and placed deep into the deep pocket and extended out from the wound. ___ dressing then placed and a track pad was then placed on top of this. The VAC was connected without evidence of leaking. The patient tolerated procedure well. There were no operative complication. The patient was extubated, taken stable to PACU. A MD ROBB Sheth/ /3:50 PM /10:39 PM
[2017-03-18] MEDS ORDERED: PHARMACY ORDERED LAB ONE (03:45)
== END 2017-03-17 13:50 | disposition home or self-care (01) | DRG 603 ==
LOC: NEPC 15:54 → NEDA 19:11 → OBSVTOIN 19:56 → N04B 21:46
PROVIDERS: ADMIT Internal Medicine; ATTEND Internal Medicine
PROC: 0Y900ZX Drainage of Right Buttock, Open Approach, Diagnostic (ICD-10-PCS; principal; 2017-03-14)
PROC: 0Y900ZX Drainage of Right Buttock, Open Approach, Diagnostic (ICD-10-PCS; 2017-03-16)
DX: L02.31 Cutaneous abscess of buttock (principal); L03.317 Cellulitis of buttock; Z87.891 Personal history of nicotine dependence
CPT/HCPCS: 10061; 72193; 80048; 80202; 82565; 85025; 87015; 87070; 87077; 87102; 87116; 87186; 87205; 87206; 88304; 88305; 90715; 96365; 96375; J1200; J1580; J2060; J2270; J2405; J2543; J3010; J3370; J7030; J7050; Q9967